=== PATIENT | male | born 1945 | race Caucasian/White ===

== ENCOUNTER 2018-01-12 10:29 | Outpatient (CLI) | payer OTHER | END 2018-01-12 10:30 | disposition home or self-care (01) | LOC: BICULT 10:29 | PROVIDERS: ATTEND Urology | DX: N28.1 Cyst of kidney, acquired (principal); Z87.442 Personal history of urinary calculi | CPT/HCPCS: 36415; 76770; 80048; 81001; 87086; G0103 ==

== ENCOUNTER 2019-02-18 10:58 | Outpatient (CLI) | payer MEDICARE ==
--- NOTE | 2019-02-18 11:47 | ULT ---
FRenal ultrasound: 02/18/2019 COMPARISON: 01/12/2018 HISTORY: Enlarged prostate gland, urinary tract infection, renal cyst TECHNIQUE: Multiplanar grayscale sonographic imaging of kidneys and urinary bladder are obtained. FINDINGS: Right kidney measures 11.1 x 5.7 x 5.4 cm, with a cortical thickness of 1.6 cm. No stone or hydronephrosis noted on the right. There is a subtle/vague hypoechoic lesion within the midpole of t he right kidney measuring approximately 1.4 x 0.9 cm. This is not optimally assessed secondary to pat ient body habitus, location of this lesion, and its small size. Small cyst is favored. Follow-up ultr asound in one year is suggested. CT at this time with and without IV contrast could potentially fully characterize this lesion if clinically warranted. Urinary bladder is partially decompressed and not optimally assessed. Prostate gland measures at leas t 5.2 x 5.3 x 4.4 cm. Left kidney measures 11.1 x 8.5 x 5.5 cm with a cortical thickness of approximately 1.9 cm. No renal mass, hydronephrosis, or renal stone noted on the left. IMPRESSION: Subtle incompletely assessed hypoechoic lesion within the right kidney. No acute findings .
== END 2019-02-18 10:59 | disposition home or self-care (01) ==
LOC: BICULT 10:58
PROVIDERS: ATTEND Urology
DX: N40.1 Benign prostatic hyperplasia with lower urinary tract symptoms (principal); N28.1 Cyst of kidney, acquired; Z87.440 Personal history of urinary (tract) infections; N28.9 Disorder of kidney and ureter, unspecified
CPT/HCPCS: 76770; 81001; 87086

== ENCOUNTER 2019-03-03 15:29 | Outpatient (CLI) | payer MEDICARE ==
[2019-03-03 17:06] LABS: Hemoglobin 16.4 g/dL (14.0-18.0); Mean Corpuscular HGB CONC 33.9 g/dL (32.0-36.0); Mean Corpuscular Hemoglobin 31.9 pg (27.0-31.0); Mean Corpuscular Volume 94.3 fL (78.0-98.0); Mean Platelet Volume 6.7 fL (7.4-10.4); Platelet Count 277 thou/uL (130-400); RBC Distribution Width 11.5 % (11.5-14.5); Red Blood Cell (RBC) Count 5.14 mill/uL (4.70-6.10); White Blood Cell (WBC) Count 15.1 thou/uL (4.8-10.8)
[2019-03-03 17:11] LABS: Bilirubin Negative (Negative); Blood, Urine Negative (Negative); Clarity CLEAR (Clear); Glucose, Urine (Dipstick) Negative (Negative); Leukocyte Negative (Negative); Nitrite Negative (Negative); Protein, Urine (Dipstick) Negative (Neg-Trace); Specific Gravity, Urine 1.024 (1.002-1.036); pH, Urine 5.5 (5.0-9.0)
[2019-03-03 17:12] LABS: PTT 27.9 SEC (22.9-36.1); Prothrombin Time 13.5 SEC (12.0-14.7)
[2019-03-03 17:13] LABS: Bacteria/HPF None Seen HPF (None Seen); Hyaline Casts/LPF 0-3 HYALINE CAST LPF (0-3 Hyaline); Pathc Cast-AUWi Flag 0.27 (0-2.49); Squamous Epithelial 0-3 HPF (0-3); WBC/HPF 0-3 HPF (0-3)
[2019-03-03 17:25] LABS: Anion Gap 13 mmol/L (10-20); BUN (Urea Nitrogen) 15 mg/dL (8.4-25.7); Calc. Creatinine Clearance 0 mL/min (70-130); Calcium 9.5 mg/dL (7.8-10.44); Carbon Dioxide 23 mmol/L (23-31); Chloride 105 mmol/L (98-107); Estimated GFR-MDRD 83; Glucose 84 mg/dL (83-110); Sodium 137 mmol/L (136-145)
== END 2019-03-03 15:30 | disposition home or self-care (01) ==
LOC: LABBT 15:29
PROVIDERS: ATTEND Urology
DX: Z01.818 Encounter for other preprocedural examination (principal); N40.1 Benign prostatic hyperplasia with lower urinary tract symptoms
CPT/HCPCS: 80048; 81001; 85027; 85610; 85730; 87086; 93005; 93010

== ENCOUNTER 2019-03-16 07:52 | Day surgery (SDC) | payer MEDICARE ==
[2019-03-03 16:08] VITALS: BMI 33.5
[2019-03-16 08:52] LABS: Hemoglobin 14.9 g/dL (14.0-18.0); Mean Corpuscular HGB CONC 32.2 g/dL (32.0-36.0); Mean Corpuscular Hemoglobin 30.3 pg (27.0-31.0); Mean Platelet Volume 6.2 fL (7.4-10.4); Platelet Count 268 thou/uL (130-400); RBC Distribution Width 11.3 % (11.5-14.5); Red Blood Cell (RBC) Count 4.93 mill/uL (4.70-6.10); White Blood Cell (WBC) Count 10.9 thou/uL (4.8-10.8)
--- NOTE | 2019-03-16 08:55 | RAD ---
EXAM: Chest PA and lateral: HISTORY: Preoperative exam COMPARISON: None FINDINGS: Heart: Normal size. Sternotomy wires are noted. Aorta: Unremarkable Pulmonary vessels: Normal Costophrenic angles: Costophrenic angles are clear. Lungs: No consolidation or masses. Pneumothorax: No pneumothorax Osseous structures: No osseous abnormalities IMPRESSION: No acute cardiopulmonary process.
[2019-03-16] MEDS ORDERED: Levofloxacin 500 mg/D5W 100 ml Premix Bag ONE (09:26)
[2019-03-16] MEDS ORDERED: Fentanyl 100 MCG/2 ML VIAL ONE ×2 (10:08→13:19)
[2019-03-16] MEDS ORDERED: Meperidine HCl/PF 25 MG/ML VIAL ONE (12:11)
[2019-03-16] MEDS ORDERED: Hyoscyamine Sulfate SL 0.125 mg Tablet ONE (12:43)
[2019-03-16] MEDS ORDERED: Phenazopyridine HCl 97.5 MG TABLET ONE (12:44)
[2019-03-16] MEDS ORDERED: HYDROcodone/Acetaminophen 5/325 mg Tablet ONE (15:06)
[2019-03-16] MEDS ORDERED: Ondansetron PF 4 MG/2 ML Vial ONE (16:05)
[2019-03-16] MEDS ORDERED: PROPOFOL 200 MG/20 ML VIAL ONE (16:05)
[2019-03-16] MEDS ORDERED: Lidocaine 1% PF 5 ML VIAL ONE (16:05)
--- NOTE | 2019-03-16 17:38 | OP ---
DATE OF PROCEDURE: 03/16/2019 PREOPERATIVE DIAGNOSIS: A 73-year-old male with history of benign prostatic hyperplasia. POSTOPERATIVE DIAGNOSIS: A 73-year-old male with history of benign prostatic hyperplasia. PROCEDURES PERFORMED: Cystoscopy and UroLift prostatic urethral implant x7. ANESTHESIA: LMA. COMPLICATIONS: None apparent. DISPOSITION: To recovery room in stable condition. DRAIN: An 18-Czech 10 mL Plasencia catheter to gravity. INDICATIONS FOR PROCEDURE AND HISTORY: Mr. Oneil is a pleasant 73-year-old male , whom I treated for ureteral calculi. He presents today for treatment of his BPH. He has chosen UroLift due to minimally invasive approach. Risks and complications and procedure indications were reviewed with the patient in detail including bleeding, pain, infection, rare incontinence, UTI, generalized pelvic pain, injury to adjacent organs, possible exposure, migration of implant resulting in incrustation. All questions were answered to his satisfaction and desired to proceed. DESCRIPTION OF PROCEDURE: After an informed consent was signed, the patient was taken to the operating room, placed in a dorsal lithotomy position with the genital area prepped and draped in the usual surgical sterile fashion. A 20-Czech cystoscope with an obturator was utilized to perform cystoscopy. He did not have a prior history of urethral stricture on a recent cystoscopy; however, today with the rigid scope, there was a subtle bulbar stricture nonobstructing. Prostatic urethra was entered again demonstrating bilobar hyperplasia with moderate obstruction. No median lobe taken as appreciated. UOs were identified approximately 3 or 4 mm away from the bladder neck. At this time, the loom operator of the UroLift device was removed and we began with our implants. The cystoscope was replaced with a UroLift delivery device. First, treatment was performed on the patient's left side approximately 1.5 cm distal to the bladder neck. The distal tip of the delivery device was angled laterally approximately 20 degrees and at this position, the lateral lobe was compressed. Utilizing the device, implant was deployed needle containing the implant through the prostate. Needle was then retracted along the end of the implant to be delivered to the capsular surface of the prostate. Implant was then tensioned to assure capsular seating and removal of slack monofilament. Device was angled back was midline slowly and advanced proximally about 3 to 4 mm on the cystoscope. Verification of the monofilament being centered in the delivery bay. The urethra and piece were then affixed to the monofilament, thereby tailoring the size of the implants. Excess of filament was then severed. Delivery device was then readvanced into the bladder. No evidence of bladder injury was noted. We repeated this process until the obstructing lobes bilaterally were resolved. Implants total were 7, 3 on the right and 4 on the left lateral lobe. At the end of the procedure, we were able to visualize from the verumontanum, resolution of an obstructive component. We repeated the cystoscopy, which demonstrated no evidence of implant within the bladder. An 18-Czech 10 mL Plasencia catheter was passed without difficulty. This demonstrated pink to light red tinged urine. He tolerated the procedure well. He was discharged with ciprofloxacin and Colace p.r.n. Will come to see me tomorrow for a voiding trial. Job ID: [id number] MTDD
== END 2019-03-16 15:50 | disposition home or self-care (01) ==
LOC: SDC 07:52
PROVIDERS: ATTEND Urology
PROC: 0T7D8DZ Dilation of Urethra with Intraluminal Device, Via Natural or Artificial Opening Endoscopic (ICD-10-PCS; principal; 2019-03-16)
DX: N40.1 Benign prostatic hyperplasia with lower urinary tract symptoms (principal); R35.0 Frequency of micturition; N35.912 Unspecified bulbous urethral stricture, male; E78.5 Hyperlipidemia, unspecified; I25.10 Atherosclerotic heart disease of native coronary artery without angina pectoris; G47.33 Obstructive sleep apnea (adult) (pediatric); N52.9 Male erectile dysfunction, unspecified; F17.210 Nicotine dependence, cigarettes, uncomplicated; Z87.440 Personal history of urinary (tract) infections; Z87.442 Personal history of urinary calculi; Z79.82 Long term (current) use of aspirin; Z79.899 Other long term (current) drug therapy; Z88.5 Allergy status to narcotic agent; Z88.8 Allergy status to other drugs, medicaments and biological substances; Z98.890 Other specified postprocedural states
CPT/HCPCS: 71046; 85027; C1758; C1769; C9740; 36415; J1956; J2001; J2175; J2405; J2704; J3010

== ENCOUNTER 2019-12-30 13:08 | Outpatient (CLI) | payer MEDICARE ==
--- NOTE | 2019-12-30 14:44 | RAD ---
KUB: HISTORY: Frequent urination. Questionable renal calculus noted on the previous ultrasound exam. FINDINGS: Bowel gas pattern appears nonobstructed. No renal calculi are demonstrated. Postoperative changes i n the prostate region are seen. Arthritic changes of the spine are noted. IMPRESSION: No renal calculi. POS: KAUSHAL
--- NOTE | 2019-12-30 15:00 | ULT ---
RENAL ULTRASOUND: HISTORY: Renal cyst. FINDINGS: Real-time imaging of the right and left kidneys was performed. The right kidney measures 12 cm and t he left kidney 10.3 cm in length. A small 1.1 x 1.3 cm mid pole right renal cyst is seen. This drea esponds in location to the area seen on a 02/28/2017 CT study. The bladder region appears unremarkable. The bladder is not fully distended. IMPRESSION: 1. Small right renal cyst. 2. Incidental note is findings that would suggest some mild fatty change of the liver. POS: KAUSHAL
== END 2019-12-30 13:09 | disposition home or self-care (01) ==
LOC: BICULT 13:08
PROVIDERS: ATTEND Urology
DX: N28.1 Cyst of kidney, acquired (principal); Z87.442 Personal history of urinary calculi
CPT/HCPCS: 36415; 74018; 76770; 80048; 81001; 87086; G0103

== ENCOUNTER 2021-10-25 06:56 | Outpatient (CLI) | payer MEDICARE | END 2021-10-25 06:57 | disposition home or self-care (01) | LOC: BICULT 06:56 | PROVIDERS: ATTEND Urology | DX: N28.1 Cyst of kidney, acquired (principal); Z12.5 Encounter for screening for malignant neoplasm of prostate; N40.1 Benign prostatic hyperplasia with lower urinary tract symptoms; R35.0 Frequency of micturition; Z87.440 Personal history of urinary (tract) infections | CPT/HCPCS: 76770; 80048; 81001; G0103; 36415 ==